=== PATIENT | male | born 1960 | race Caucasian/White ===

== ENCOUNTER 2023-10-30 10:04 | Emergency (ER) | payer SELFPAY ==
[2023-10-30 10:21] VITALS: BMI 29.8
[2023-10-30] MEDS: ADACEL 0.5 ML IM (11:52)
--- NOTE | 2023-10-30 11:52 | ED.SKININJ ---
HPI-Injury
General
Chief Complaint: Skin Surface Trauma
Source: patient
Exam Limitations: none
Time Seen by Provider: 10/30/23 10:29
History of Present Illness-Injury
Initial Injury comments:
63-year-old male presents with laceration/crush injury to left ring finger he sustained today. He got pinned between a chain and a heavy great. Last tetanus unknown. He notes pain to the distal aspect of the finger. No other complaints at this
time
Phy Exam
Physical Exam
Physical Exam:
General: Well-appearing male no acute distress
Skin: Laceration left distal volar ring finger measuring about 3 cm in a U-shaped fashion from the DIP joint radiating ulnarly and laterally. No tendon involvement.
Musculoskeletal exam: Able to flex and extend at the DIP joint
The tip of the finger is tender to palpation however he has good sensation to the tip of the finger with good capillary refill
Course
Orders/Labs/Results
Orders:
Orders
10/30/23 10:56
CR Finger(s)/thumb Min 2 Vw Lt Urgent
Comment:
Reason For Exam: crush injury
10/30/23 11:02
Tetanus/Diphth/Acelpertussis [Adacel] 0.5 ml IM .ONCE ONE
Vital Signs
Initial and Last Documented VS:
Initial Vital Signs
Temp Pulse Resp Pulse Ox
98.2 F 52 18 100
10/30/23 10:05 10/30/23 10:05 10/30/23 10:05 10/30/23 10:05
Last Documented Vital Signs
Temp Pulse Resp Pulse Ox
98.2 F 52 18 100
10/30/23 10:05 10/30/23 10:05 10/30/23 10:05 10/30/23 10:05
MDM/Problems Addressed
Differential Diagnosis Includes:
Crush injury left ring finger. Question laceration versus fracture versus dislocation
X-rays left ring finger were obtained. This demonstrates comminuted fracture of the tuft of the distal phalanx
Patient was given a digital block with 1% lidocaine and 0.5% Marcaine. This was given at the base of the finger and provided adequate anesthesia for the procedure. The finger was copiously irrigated with saline and the wounds were closed with 5-0
Prolene sutures. 12 sutures were required.
Gauze dressing was applied. Patient tetanus vaccine updated. Will start on Keflex for prophylaxis. Advise follow-up with Workmen's Comp.
*Critical Care Note
Total Time (30-74mins, 75-104mins- exclusive of procedures): Not Applicable
ED Attending Note
-
Portions of this chart may have been created with voice recognition software.� Occasional wrong word or��sound alike� substitutions may have occurred due to the inherent limitations of voice recognition software.
Discharge Plan
Departure
Patient Disposition: Home (Routine Discharge)
Date of Disposition: 10/30/23
Time of Disposition: 11:57
Patient with high blood pressure during this ER visit?: No
Discharge Problem:
Laceration, Finger fracture, left
Instructions: Laceration Repair With Stitches (DC)
Prescriptions:
New
cephalexin 500 mg capsule
500 mg PO Q6H 7 Days Qty: 28 0RF
Referrals:
Christie Tan, [Family Provider] -
Activity Restrictions/Additional Instructions:
Keep clean. Take antibiotics as directed. Use ibuprofen or Tylenol for pain. Follow-up with Workmen's Comp. doctor for further evaluation
Interventions
Interventions:
*Risk Screen - Suicide Last Done: 10/30/23 10:05
*General Assessment Last Done: 10/30/23 10:05
*Neglect/Abuse Screening Last Done: 10/30/23 10:05
ED- Fall Risk Assessment Last Done: 10/30/23 10:21
*ED COVID-19 Vaccine History Last Done: 10/30/23 10:05
ED-Skin Assessment Last Done: 10/30/23 10:21
Discharge Date and Time
Print Language: BELARUSIAN
== END 2023-10-30 12:17 | disposition home or self-care (01) ==
LOC: EMR 10:04
PROVIDERS: EMERGENCY PHYSICIAN Emergency Medicine; FAMILY PHYSICIAN Family Medicine
DX: S62.605B Fracture of unspecified phalanx of left ring finger, initial encounter for open fracture (principal); W23.0XXA Caught, crushed, jammed, or pinched between moving objects, initial encounter; Z23 Encounter for immunization
CPT/HCPCS: 99283; 12001; 90471; 73140; 90715

== ENCOUNTER 2024-03-04 10:09 | Emergency (ER) | payer SELFPAY ==
[2024-03-04 10:20] VITALS: BP 134/98
--- NOTE | 2024-03-04 10:36 | ED.GENMED ---
History of Present Illness
<Magalys Stubbs PA-C - Last Filed: 03/04/24 18:52>
General
Chief Complaint: Fainting/Passed Out
Source: patient
Exam Limitations: none
Time Seen by Provider: 03/04/24 10:36
Nursing documentation reviewed up to this point in time: agreed with
History of Present Illness
History of Present Illness:
Patient is a 64-year-old male you try it past medical history of hypertension, hyperlipidemia, vertigo presents emergency department today with concerns of a syncopal episode and head trauma. Patient reports that he works in construction was at
work today and states that he was hammering down in a ditch when he hit his finger with a hammer and he started to immediately feel lightheaded and dizzy. Patient states that he started to crawl his way out of the ditch to his coworkers and states
that the dizziness and lightheadedness intensified, he felt warm, he subsequently passed out. Patient states that he is injured himself before at work and has never felt this way. His coworkers called his family and they report that he fell back
and hit his head. Patient currently complains of generalized lethargy as well as neck pain but denies headache, dizziness, lightheadedness. He denies pain in his finger. He denies chest pain or shortness of breath. He is up to date on his tetanus
vaccination.
Review of Systems
<Magalys Stubbs PA-C - Last Filed: 03/04/24 18:52>
Review of Systems
All Other Systems: ROS reviewed and negative except as documented in HPI and ROS
Phy Exam
<Magalys Stubbs PA-C - Last Filed: 03/04/24 18:52>
Physical Exam
Physical Exam:
General: Patient is well appearing and in no acute distress; non-toxic
Skin: Warm and dry, 1.5 cm laceration noted to the left posterior scalp
Head: Normocephalic, atraumatic
Eyes: Sclera non-icteric. EOMs intact.
Neck: No midline spinal tenderness, tenderness palpation of the paracervical muscles
Cardiac: Regular rate and rhythm, no murmurs
Pulm: Normal respiratory effort
Abdomen: No abdominal tenderness
Musculoskeletal: No tenderness to palpation of the left first digit, no obvious bony deformity
Neuro: CN II-XII intact, no focal neurologic deficits. Normal finger-nose, [id number] testing. 5 out of 5 strength in bilateral upper and lower extremities.
Psychiatric: Appropriate mood and affect.
Course
<Magalys Stubbs PA-C - Last Filed: 03/04/24 18:52>
Orders/Labs/Results
Orders:
Orders
03/04/24 10:12
EKG [Electrocardiogram (*1)] Urgent
Reason for Study: Syncope
EKG- Treatment ONCE
03/04/24 11:01
CT Cervical Spine W/o Iv Contr Urgent
Comment:
Reason For Exam: head trauma, midline neck pain
CT Head W/o Iv Contrast Urgent
Comment:
Reason For Exam: posterior pain, head trauma
03/04/24 11:12
Complete Blood Count/With Diff Urgent
Comprehensive Metabolic Panel Urgent
03/04/24 11:17
CR Elbow - Left Min 3 Views Urgent
Reason For Exam: elbow pain
03/04/24 12:00
Acetaminophen [Tylenol] 650 mg PO NOW STA
Abnormal Lab Results
03/04/24
11:12
MCH 32.9 H pg
(27.0-31.0)
Abs Immat Gran (auto) 0.1 H 10^3/uL
(0-0.05)
Absolute Neuts (auto) 8.3 H 10^3/uL
(1.4-6.5)
Absolute Lymphs (auto) 0.8 L 10^3/uL
(1.2-3.4)
Absolute Monos (auto) 0.9 H 10^3/uL
(0.1-0.6)
Immature Gran % 0.7 H %
(0-0.5)
Neutrophils % 81.2 H %
(42.2-75.2)
Lymphocytes % 7.6 L %
(20.5-51.1)
Glucose 102 H mg/dl
(70-99)
03/04/24 11:12
03/04/24 11:12
Vital Signs
Initial and Last Documented VS:
Initial Vital Signs
Temp Pulse Resp BP Pulse Ox
98.0 F 53 16 134/98 98
03/04/24 10:20 03/04/24 10:20 03/04/24 10:20 03/04/24 10:20 03/04/24 10:20
Last Documented Vital Signs
Temp Pulse Resp BP Pulse Ox
98.0 F 59 12 153/93 97
03/04/24 10:20 03/04/24 11:45 03/04/24 11:45 03/04/24 11:07 03/04/24 11:45
Juliannalt;Vitor Starkey, DO - Last Filed: 03/04/24 13:15>
Orders/Labs/Results
Orders:
Orders
03/04/24 10:12
EKG [Electrocardiogram (*1)] Urgent
Reason for Study: Syncope
EKG- Treatment ONCE
03/04/24 11:01
CT Cervical Spine W/o Iv Contr Urgent
Comment:
Reason For Exam: head trauma, midline neck pain
CT Head W/o Iv Contrast Urgent
Comment:
Reason For Exam: posterior pain, head trauma
03/04/24 11:12
Complete Blood Count/With Diff Urgent
Comprehensive Metabolic Panel Urgent
03/04/24 11:17
CR Elbow - Left Min 3 Views Urgent
Reason For Exam: elbow pain
03/04/24 12:00
Acetaminophen [Tylenol] 650 mg PO NOW STA
Abnormal Lab Results
03/04/24
11:12
MCH 32.9 H pg
(27.0-31.0)
Abs Immat Gran (auto) 0.1 H 10^3/uL
(0-0.05)
Absolute Neuts (auto) 8.3 H 10^3/uL
(1.4-6.5)
Absolute Lymphs (auto) 0.8 L 10^3/uL
(1.2-3.4)
Absolute Monos (auto) 0.9 H 10^3/uL
(0.1-0.6)
Immature Gran % 0.7 H %
(0-0.5)
Neutrophils % 81.2 H %
(42.2-75.2)
Lymphocytes % 7.6 L %
(20.5-51.1)
Glucose 102 H mg/dl
(70-99)
03/04/24 11:12
03/04/24 11:12
Vital Signs
Initial and Last Documented VS:
Initial Vital Signs
Temp Pulse Resp BP Pulse Ox
98.0 F 53 16 134/98 98
03/04/24 10:20 03/04/24 10:20 03/04/24 10:20 03/04/24 10:20 03/04/24 10:20
Last Documented Vital Signs
Temp Pulse Resp BP Pulse Ox
98.0 F 59 12 153/93 97
03/04/24 10:20 03/04/24 11:45 03/04/24 11:45 03/04/24 11:07 03/04/24 11:45
<Magalys Stubbs PA-C - Last Filed: 03/04/24 18:52>
MDM/Problems Addressed
Differential Diagnosis Includes:
Differentials include vasovagal syncope, electrolyte derangement, hypoglycemia, cardiac arrhythmia, laceration, abrasion, epidural hematoma, intraparenchymal hemorrhage
MDM/Problems Addressed:
64-year-old male presents emergency department today with a syncopal episode following hitting his finger with a hammer. Patient syncopized falling back hitting the back of his head. He feels well now. He has not take a blood thinner. He has a
small laceration to the posterior scalp. This was repaired with staple. Patient tolerated the procedure well. CBC and CMP are unremarkable. His EKG shows no arrhythmia. CT of the head shows no acute intracranial abnormality other than soft
tissue swelling, CT of the cervical spine shows no acute fracture or dislocation. Suspect likely vasovagal syncope, patient stable for discharge.
Chronic conditions affecting care:
HTN, HLP
<Magalys Stubbs PA-C - Last Filed: 03/04/24 18:52>
*Pulse Oximetry
Patient hypoxic: no
*EKG
Interpreted by ED Provider?: Yes
EKG Intrepretation Date: 03/04/24
Interpretation: abnormal
Comparison EKG: no comparison EKG present
Heart Rate: 54
Rate: bradycardiac
Rhythm: sinus
Interval: normal interval
QRS Pattern: normal QRS
Ischemia: no ischemia
*Critical Care Note
Total Time (30-74mins, 75-104mins- exclusive of procedures): Not Applicable
Data Reviewed
Review of Other/Old Records Reveals: Records (Reviewed ER physician documentation from 10/30/2023, patient seen for fracture of the finger) and Discharge Summary (No discharge summary [facility] to review )
Source: patient and records
Prescriptions/Medications Considered But Not Given:
n/a
Further Testing Considered But Not Given:
n/a
<Magalys Stubbs PA-C - Last Filed: 03/04/24 18:52>
Patient Management
Escalation/DeEscalation of care consider admission/obs:
Admit not indicated, patient stable for discharge
ED Attending Note
<Magalys Stubbs PA-C - Last Filed: 03/04/24 18:52>
-
Portions of this chart may have been created with voice recognition software.� Occasional wrong word or��sound alike� substitutions may have occurred due to the inherent limitations of voice recognition software.
<Vitor Starkey DO - Last Filed: 03/04/24 13:15>
ED Attending Note
Patient seen and examined by attending physician: Yes
I performed a history and physical exam of patient and discussed management with resident, I reviewed resident's note and agree with documented findings and plan of care.: Yes
ED Attending Note:
I have reviewed and agree with history and treatment plan by Magalys Stubbs. My exam revealed 64-year-old male in no acute distress. 1.5 cm occipital scalp laceration. Patient with clear prodrome. No signs of dysrhythmia. Doubt ACS or PE.
Patient stable for discharge.
Discharge Plan
Departure
Patient Disposition: Home (Routine Discharge)
Date of Disposition: 03/04/24
Time of Disposition: 12:52
Patient with high blood pressure during this ER visit?: Yes
Condition: Good
Discharge Problem:
Head injury, Syncope
Instructions: Syncope (Fainting) (DC), Laceration Repair With [place] ED, BLOOD PRESSURE
Prescriptions:
No Action
cephalexin 500 mg capsule
500 mg PO Q6H 7 Days Qty: 28 0RF
Referrals:
Navarro Otto MD [Active] - Call in 1-3 days for appt
Christie Tan DO [Family Provider] -
Activity Restrictions/Additional Instructions:
Please return to the emergency department should you experience chest pain, shortness of breath, severe headache, weakness on one side of body versus the other, difficulty speaking, confusion, visual loss, or any other signs or symptoms concerning
to you.
Please follow-up with your primary care provider.
Interventions
Interventions:
*Risk Screen - Suicide Last Done: 03/04/24 10:20
*General Assessment Last Done: 03/04/24 11:02
*Neglect/Abuse Screening Last Done: 03/04/24 10:20
ED- Fall Risk Assessment Last Done: 03/04/24 11:02
*ED COVID-19 Vaccine History Last Done: 03/04/24 11:02
*Nursing Disposition Last Done: 03/04/24 13:02
ED- Cardiac Assessment Last Done: 03/04/24 11:02
ED- Neurological Assessment Last Done: 03/04/24 11:02
Discharge Date and Time
Discharge Date/Time: 03/04/24 13:02
Print Language: [id number]
[2024-03-04 11:02] VITALS: BMI 27.8
[2024-03-04 11:07] VITALS: BP 153/93
[2024-03-04 11:23] LABS: % Basophils 0.5 % (0-2); % Eosinophils 1.4 % (0-6); % Immature Granulocytes 0.7 % (0-0.5); % Lymphocytes 7.6 % (20.5-51.1); % Monocytes 8.6 % (1.7-9.3); % Neutrophils 81.2 % (42.2-75.2); Absolute Basophils 0.1 10^3/uL (0-0.2); Absolute Eosinophils 0.1 10^3/uL (0-0.7); Absolute Immature Granulocytes 0.1 10^3/uL (0-0.05); Absolute Lymphocytes 0.8 10^3/uL (1.2-3.4); Absolute Monocytes 0.9 10^3/uL (0.1-0.6); Absolute Neutrophils 8.3 10^3/uL (1.4-6.5); Hematocrit 42.8 % (39.0-52.0); Hemoglobin 15.5 g/dL (13.0-18.0); Mean Corp Hgb Conc. 36.2 g/dL (33.0-37.0); Mean Corpuscular Hgb 32.9 pg (27.0-31.0); Mean Corpuscular Volume 90.9 fL (80.0-94.0); Mean Platelet Volume 9.7 fL (7.4-10.4); Nucleated Red Blood Cells % 0 % (-); Platelet Count 236 10^3/uL (130-400); Red Blood Cell Count 4.71 10^6/uL (4.70-6.10); Red Cell Dist. Width 12.3 % (11.5-14.5); White Blood Cell Count 10.2 10^3/uL (4.8-10.8)
[2024-03-04 11:36] LABS: ALT (SGPT) 35 U/L (0-50); AST (SGOT) 34 U/L (17-59); Albumin 4.5 g/dl (3.5-5.0); Alkaline Phosphatase 62 U/L (38-126); Blood Urea Nitrogen 17 mg/dl (9-20); Calcium 9.3 mg/dl (8.4-10.2); Carbon Dioxide 27 mmol/L (22-30); Chloride 100 mmol/L (98-107); Estimated Creatinine Clearance 66 ml/min; Glucose 102 mg/dl (70-99); Sodium 139 mmol/L (135-145); Total Bilirubin 0.7 mg/dl (0.2-1.3); Total Protein 6.9 g/dl (6.3-8.2); eGFR > 60.00
[2024-03-04] MEDS: TYLENOL 650 MG PO (12:24)
== END 2024-03-04 13:02 | disposition home or self-care (01) ==
LOC: EMR 10:09
PROVIDERS: Physician Assistant; EMERGENCY PHYSICIAN Emergency Medicine; FAMILY PHYSICIAN Family Medicine
DX: S09.90XA Unspecified injury of head, initial encounter (principal); R55 Syncope and collapse; W19.XXXA Unspecified fall, initial encounter; I10 Essential (primary) hypertension; E78.00 Pure hypercholesterolemia, unspecified
CPT/HCPCS: 99284; 70450; 72125; 73080; 80053; 85025; 93005